=== PATIENT | female | born 1970 | race Caucasian/White ===

== ENCOUNTER 2022-01-05 16:38 | Emergency (ER) | payer OTHER ==
[2022-01-05 17:31] LABS: HEMOGLOBIN 16.7 gm/dl (12.3-15.3); RED BLOOD COUNT 5.57 M/UL (4.00-5.10); WHITE BLOOD COUNT 9.8 K/UL (4.5-11.0)
[2022-01-05 17:53] LABS: BUN/CREATININE RATIO 32 (0-10)
[2022-01-05] MEDS ORDERED: PREDNISONE 20 M20 MG PO (19:29)
== END 2022-01-05 20:24 | disposition home or self-care (01) ==
LOC: ER1 16:38
PROVIDERS: Emergency Medicine
DX: R07.81 Pleurodynia (principal); R07.89 Other chest pain; E11.9 Type 2 diabetes mellitus without complications; I10 Essential (primary) hypertension; Z88.1 Allergy status to other antibiotic agents
CPT/HCPCS: 71045; 80053; 82550; 82553; 83874; 83880; 84484; 85025; 85379; 85610; 85730; 93005; 99285

== ENCOUNTER → 2022-03-19 | Outpatient (CLI) | payer OTHER ==
[~2022-03-19] MED LIST: PREDNISONE 20 M20 MG PO
== END ==
LOC: HEART 5 15:21
DX: R06.02 Shortness of breath (principal)
CPT/HCPCS: 94010; 94729

== ENCOUNTER → 2022-03-26 | Outpatient (CLI) | payer OTHER | LOC: CT 07:50 | DX: R07.81 Pleurodynia (principal); M06.09 Rheumatoid arthritis without rheumatoid factor, multiple sites | CPT/HCPCS: 36415; 82565; 84520; Q9967 ==